=== PATIENT | female | born 1980 | race African-American/Black ===

== ENCOUNTER 2019-10-30 07:12 | Emergency (ER) | payer SELFPAY ==
[2019-10-30 09:12] LABS: HEMATOCRIT 36.8 % (36.0-47.0); HEMOGLOBIN 11.9 g/dL (12.0-15.5); MEAN CORPUSCULAR HEMOGLOBIN 25.7 pg (27.0-33.4); MEAN CORPUSCULAR HGB CONC 32.4 g/dL (32.0-36.0); MEAN CORPUSCULAR VOLUME 79 fl (80-97); PLATELET COUNT 251 10^3/uL (150-450); RED BLOOD COUNT 4.64 10^6/uL (3.72-5.28); RED CELL DISTRIBUTION WIDTH 15.9 % (11.5-14.0); WHITE BLOOD COUNT 8.9 10^3/uL (4.0-10.5)
[2019-10-30 09:32] LABS: ALBUMIN 3.7 g/dL (3.5-5.0); ALKALINE PHOSPHATASE 55 U/L (38-126); ANION GAP 7 (5-19); ASPARTATE AMINO TRANSFERASE 21 U/L (14-36); BILIRUBIN,DIRECT 0.1 mg/dL (0.0-0.4); BILIRUBIN,TOTAL 0.3 mg/dL (0.2-1.3); BLOOD UREA NITROGEN 13 mg/dL (7-20); CALCIUM 8.9 mg/dL (8.4-10.2); CARBON DIOXIDE 27 mmol/L (22-30); CHLORIDE 102 mmol/L (98-107); GLUCOSE 89 mg/dL (75-110); POTASSIUM 4.5 mmol/L (3.6-5.0)
[2019-10-30 09:39] LABS: APPEARANCE,URINE SLIGHTLY-CLOUDY; BILIRUBIN,URINE NEGATIVE (NEGATIVE); COLOR,URINE YELLOW; GLUCOSE, URINE NEGATIVE (NEGATIVE); KETONES,URINE NEGATIVE (NEGATIVE); LEUKOCYTE ESTERASE,URINE NEGATIVE (NEGATIVE); NITRITE,URINE NEGATIVE (NEGATIVE); PROTEIN,URINE NEGATIVE (NEGATIVE); URINE SPECIFIC GRAVITY 1.013; UROBILINOGEN,URINE NEGATIVE mg/dL (<2.0)
[2019-10-30 09:50] LABS: ABSOLUTE LYMPHOCYTES# (MANUAL) 2.5 10^3/uL (0.5-4.7); ABSOLUTE MONOCYTES # (MANUAL) 0.3 10^3/uL (0.1-1.4); BASOPHILS % (MANUAL) 0 % (0-2); EOSINOPHILS % (MANUAL) 3 % (0-6); LYMPHOCYTES % (MANUAL) 25 % (13-45); MONOCYTES % (MANUAL) 3 % (3-13); SEGMENTED NEUTROPHILS % (MAN) 66 % (42-78); TOTAL CELLS COUNTED 100
[2019-10-30 09:52] LABS: ANISOCYTOSIS 1+; HYPOCHROMASIA SLIGHT
[2019-10-30 09:53] LABS: PLATELET COMMENT ADEQUATE
--- NOTE | 2019-10-30 11:06 | RADIOLOGY REPORT (SQ) ---
EXAM DESCRIPTION: ACUTE ABDOMEN SERIES COMPLETED DATE/TIME: 10/30/2019 10:57 am REASON FOR STUDY: Lower abdominal pain COMPARISON: None. NUMBER OF VIEWS: Three views. TECHNIQUE: Frontal chest, supine abdomen and upright/decubitus abdomen radiographic images acquired. LIMITATIONS: None. FINDINGS: CHEST: Lungs clear of infiltrates. FREE AIR: None. No abnormal gas collections. BOWEL GAS PATTERN: Nonobstructive pattern. No dilated loops or air fluid levels. CALCIFICATIONS: No suspicious calcifications. HARDWARE: None in the abdomen. SOFT TISSUES: No gross mass or suggestion of organomegaly. BONES: No acute fracture. No worrisome bone lesions. OTHER: No other significant finding. IMPRESSION: NO RADIOGRAPHIC EVIDENCE FOR ACUTE ABDOMINAL DISEASE. TECHNICAL DOCUMENTATION: JOB ID: [id number] [employer]- All Rights Reserved Reading location - IP/workstation name: [email or web address]
[2019-10-30 12:03] VITALS: BP 139/79
[2019-10-30 12:39] LABS: CHLAM PCR NOT DETECTED (NOT DETECT)
--- NOTE | 2019-11-02 08:25 | ER Document Report ---
Entered by TAMIKO RIVERO SCRIBE 10/30/19 0838 Acting as scribe for:BRENDA JIMÉNEZ MD ED General - General Chief Complaint: Abdominal Pain Stated Complaint: ABDOMINAL PAIN Time Seen by Provider: 10/30/19 08:31 Primary Care Provider: DAVID PRIETO FNP-C [Primary Care Provider] - Follow up as needed Mode of Arrival: Ambulatory Information source: Patient Notes: This 39 year old female presents to the ED today with complaints of lower a bdominal pain with associated nausea, burning with urination, and lower back pain for the past x1 week. Patient describes the pain as being constant since onset, but has gradually gotten more severe as the week progressed. She has been drinking cranberry juice thinking it was a urinary tract infection. Patient reports that her last menstrual period was x1.5 weeks ago, normal, and on time. Patient states that her last bowel movement was normal yesterday. Patient denies fevers, vomiting, diarrhea, history of frequent urinary tract infections or vaginal discharge. TRAVEL OUTSIDE OF THE [place] IN LAST 30 DAYS: No - Related Data Allergies/Adverse Reactions: No Known Allergies Allergy (Verified 06/07/15 07:26) Past Medical History - General Information source: Patient - Social History Smoking Status: Never Smoker Cigarette use (# per day): No Chew tobacco use (# tins/day): No Frequency of alcohol use: 1-2 wine nightly Drug Abuse: None Family History: DM, Malignancy Patient has suicidal ideation: No Patient has homicidal ideation: No Pulmonary Medical History: Reports: Hx Asthma Past Surgical History: Reports: Hx Tubal Ligation - Immunizations Immunizations up to date: Yes Hx Diphtheria, Pertussis, Tetanus Vaccination: Yes Review of Systems - Review of Systems Constitutional: See HPI. denies: Fever EENT: No symptoms reported Cardiovascular: No symptoms reported Respiratory: No symptoms reported Gastrointestinal: See HPI, Abdominal pain, Nausea, Last bowel movement - normal, x1 day ago. denies: Diarrhea, Vomiting Genitourinary: See HPI, Dysuria Female Genitourinary: Last menstrual period - x1.5 week ago, normal, and on time Musculoskeletal: See HPI, Back pain Skin: No symptoms reported Hematologic/Lymphatic: No symptoms reported Neurological/Psychological: No symptoms reported -: Yes All other systems reviewed and negative Physical Exam - Vital signs Vitals: BP 139/97 H 06/07/15 08:46 Interpretation: Normal - General General appearance: Alert In distress: None - HEENT Head: Normocephalic, Atraumatic Eyes: Normal Pupils: PERRL - Respiratory Respiratory status: No respiratory distress Chest status: Nontender Breath sounds: Normal Chest palpation: Normal - Cardiovascular Rhythm: Regular Heart sounds: Normal auscultation Murmur: No - Abdominal Inspection: Obese Distension: No distension Bowel sounds: Normal - active bowel sounds Tenderness: Nontender - abdomen soft; palpation of the entire lower abdomen causes a mild diffuse pressure sensation per patient. No: Guarding Organomegaly: No organomegaly - Back Back: Normal, Tender - Lumbar-sacral back muscles are little tender - Extremities General upper extremity: Normal inspection General lower extremity: Normal inspection - Neurological Neuro grossly intact: Yes - Psychological Associated symptoms: Normal affect, Normal mood - Skin Skin Temperature: Warm Skin Moisture: Dry Skin Color: Normal Course - Re-evaluation Re-evalutation: 10/30/19 11:48 Patient CBC, Chem-12, and urinalysis are all completely normal. Acute abdominal series was done and it is unremarkable. I am unable to explain the burning she feels when she urinates along with the constant lower pelvic discomfort and the low back pain with completely normal urine. She wonders if it might be her bacterial vaginosis, however explained her that that will not cause pain in the pelvis or in the low back, and that her urine despite having 16 epithelial cells had a single WBC and no bacteria. We d iscussed managing her symptoms with Tylenol and ibuprofen, plenty of fluids, and following up with [facility] Saturday if her symptoms persist. - Vital Signs Vital signs: Temp Pulse Resp BP Pulse Ox 98.5 F 87 18 139/97 H 99 10/30/19 07:31 10/30/19 07:17 10/30/19 07:31 10/30/19 07:31 10/30/19 07:31 - Laboratory Result Diagrams: 10/30/19 09:02 10/30/19 09:02 Laboratory results interpreted by me: 10/30/19 10/30/19 09:02 09:02 Hgb 11.9 L MCV 79 L MCH 25.7 L RDW 15.9 H Sodium 135.8 L - Diagnostic Test Radiology reviewed: Image reviewed, Reports reviewed - Acute abdominal series is unremarkable Discharge - Discharge Clinical Impression: Pelvic pain, Dysuria Low back pain Qualifiers: Chronicity: acute Back pain laterality: unspecified Sciatica presence: without sciatica Qualified Code(s): M54.5 - Low back pain Disposition: HOME, SELF-CARE Additional Instructions: Pelvic Pain There are many causes of pain in the pelvic area. The cause could be the tubes, ovaries, uterus, intestines, appendix, pelvic muscles and connective tissue, or the urinary tract. The cause of your pelvic pain is not clear. However, it seems safe to treat you outside the hospital. If the pain sounds like a temporary problem, we sometimes wait to see if it goes away. Other patients may need additional tests, such as pelvic ultrasound or cultures. Conditions may change. Call us or come back for reexamination if any problems occur, such as: (1) Pain that becomes more severe, steady, or becomes concentrated in one specific area. Also, pain that is more severe with movement or coughing. (2) Vomiting that persists or becomes more frequent. (3) Blood in the vomitus, urine, or bowel movements. Blood in the stool may have a tarry or black appearance. (4) Shaking chills or fever greater than 100 degrees. (5) The abdomen becomes more distended or swollen. (6) Bowel movements cease. (7) Heavy vaginal bleeding. Take Tylenol and ibuprofen for pelvic and low back discomfort as needed. Drink plenty of fluids. Follow-up with [facility] Saturday for recheck if your symptoms persist. RETURN TO THE EMERGENCY ROOM IF ANY NEW OR WORSENING SYMPTOMS. Referrals: DAVID PRIETO FNP-C [Primary Care Provider] - Follow up as needed [facility] [Provider Group] - Follow up as needed Scribe Attestation: 10/30/19 10:50 I personally performed the services described in the documentation, reviewed and edited the documentation which was dictated to the scribe in my presence, and it accurately records my words and actions. I personally performed the services described in the documentation, reviewed and edited the documentation which was dictated to the scribe in my presence, and it accurately records my words and actions.
== END 2019-10-30 12:02 | disposition home or self-care (01) ==
LOC: ER 07:12
DX: R10.2 Pelvic and perineal pain (principal); R10.30 Lower abdominal pain, unspecified; R30.0 Dysuria; M54.5 Low back pain; E66.9 Obesity, unspecified
CPT/HCPCS: 36415; 74022; 80053; 81001; 81025; 83690; 85025; 87491; 87591; 99284

== ENCOUNTER 2020-03-29 12:41 | Emergency (ER) | payer SELFPAY ==
[2020-03-29] MEDS ORDERED: IBUPROFEN 800 MG TABLET PO ONE (12:51)
--- NOTE | 2020-03-29 12:56 | ER Document Report ---
HPI - HPI Time Seen by Provider: 03/29/20 12:45 Pain Level: 5 Notes: 39-year-old female presents to the emergency room for complaints of bilateral knee pain for over 1 year. Denies any trauma, falling, previous injury to the knee. Has not followed up with her primary care provider for this issue because she moved from [place] over a year ago. Has not tried any Tylenol or ibuprofen. 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 Denies fevers, chills, chest pain,palpitations, shortness of breath, dyspnea, nausea, vomiting, diarrhea, abdominal pain, hematuria,blurred vision, double vision, loss of vision, speech changes, LH, dizziness, syncope, headaches, wheezing, ST, URI, neck pain, weakness, bowel or bladder dysfunction, saddle anesthesia, numbness or tingling in bilateral upper or lower extremities equally, muscle paralysis, weakness in bilateral upper or lower extremities equally or rash. REVIEW OF SYSTEMS:reviewed vital signs by RN CONSTITUTIONAL : Denies fever, chills, or sweats. Denies recent illness. EENT: Denies eye, ear, throat, or mouth pain or symptoms. Denies nasal or sinus congestion or discharge. Denies throat, tongue, or mouth swelling or difficulty swallowing. CARDIOVASCULAR: Denies chest pain. Denies palpitations or racing or irregular heart beat. Denies ankle edema. RESPIRATORY: Denies cough, cold, or chest congestion. Denies shortness of breath, difficulty breathing, or wheezing. GASTROINTESTINAL: Denies abdominal pain or distention. Denies nausea, vomiting, or diarrhea. Denies blood in vomitus, stools, or per rectum. Denies black, tarry stools. Denies constipation. GENITOURINARY: Denies difficulty urinating, painful urination, burning, frequency, blood in urine, or discharge. FEMALE GENITOURINARY: Denies vaginal bleeding, heavy or abnormal periods, irregular periods. Denies vaginal discharge or odor. MUSCULOSKELETAL: reports bilateral knee pain. Denies back or neck pain or stiffness. Denies joint pain or swelling besides knee. SKIN: Denies rash, lesions or sores. HEMATOLOGIC : Denies easy bruising or bleeding. LYMPHATIC: Denies swollen, enlarged glands. NEUROLOGICAL: Denies confusion or altered mental status. Denies passing out or loss of consciousness. Denies dizziness or lightheadedness. Denies headache. Denies weakness or paralysis or loss of use of either side. Denies problems with gait or speech. Denies sensory loss, numbness, or tingling. Denies seizures. PSYCHIATRIC: Denies anxiety or stress. Denies depression, suicidal ideation, or homicidal ideation. ALL OTHER SYSTEMS REVIEWED AND NEGATIVE. PHYSICAL EXAMINATION: GENERAL: Well-appearing, morbidly obese and in no acute distress. HEAD: Atraumatic, normocephalic. EYES: Pupils equal round and reactive to light, extraocular movements intact, conjunctiva are normal. ENT: Nares patent, oropharynx clear without exudates. Moist mucous membranes. NECK: Normal range of motion, supple without lymphadenopathy LUNGS: Breath sounds clear to auscultation bilaterally and equal. No wheezes rales or rhonchi. HEART: Regular rate and rhythm without murmurs ABDOMEN: Soft, nontender, nondistended abdomen. No guarding, no rebound. No masses appreciated. Female : deferred Musculoskeletal: Normal range of motion, no pitting or edema. No cyanosis. left and right nee pain with palpation to lateral aspect of knee with noted swelling. negative braxton's sign. anterior and posterior drawer test negative. noted pain with inversion and eversion bilaterally. Dtr + 2 in BLE. Full motor and sensory function to BLE equally. No open wounds. No induration or drainage. Strength 5 out of 5 bilaterally equally. Ankle examination normal. Squeeze test negative. Hip examination normal. Pulses + 2 bilaterally and equally.negative squeeze bilaterally and equally. NEUROLOGICAL: Cranial nerves grossly intact. Normal speech, normal gait. Normal sensory, motor exams PSYCH: Normal mood, normal affect. SKIN: Warm, Dry, normal turgor, no rashes or lesions noted. Dictation was performed using [employer] voice recognition software - REPRODUCTIVE Reproductive: DENIES: : Past Medical History - Social History Smoking Status: Unknown if Ever Smoked Family History: DM, Malignancy Patient has homicidal ideation: No Pulmonary Medical History: Reports: Hx Asthma, Hx Bronchitis Past Surgical History: Reports: Hx Oral Surgery, Hx Tubal Ligation - Immunizations Immunizations up to date: Yes Hx Diphtheria, Pertussis, Tetanus Vaccination: Yes Vertical Provider Document - INFECTION CONTROL TRAVEL OUTSIDE OF THE [place] IN LAST 30 DAYS: No Course - Re-evaluation Re-evalutation: 03/29/20 13:09 Afebrile vital stable no distress. Nurses notes reviewed. Bilateral knee x- rays negative for acute fracture dislocation, does show osteoarthritis. Discussed with patient that she needs to follow-up with her primary care provider, commit to stretching, also commit to weight reduction as well as taking anti-inflammatories and following up with an electronic commerce specialist. Discussed that she likely will have to follow-up with physical therapy which she needs a referral from her PCP. After performing a Medical Screening Examination, I estimate there is LOW risk for OPEN FRACTURE, COMPARTMENT SYNDROME, DEEP VENOUS THROMBOSIS, ACUTE TENDON RUPTURE, or NEUROVASCULAR INJURY thus I consider the discharge disposition reasonable. I have reevaluated this patient multiple times and no significant life threatening changes are noted. The patient and I have discussed the diagnosis and risks, and we agree with discharging home to closely follow-up with their primary doctor or the referral orthopedist with the understanding that symptoms and presentations can change. We also discussed returning to the Emergency Department immediately if new or worsening symptoms occur. We have discussed the symptoms which are most concerning (e.g., changing or worsening pain, numbness, weakness) that necessitate immediate return - Vital Signs Vital signs: Temp Pulse Resp BP Pulse Ox 97.7 F 03/29/20 12:44 Discharge - Discharge Clinical Impression: Bilateral knee pain Condition: Stable Disposition: HOME, SELF-CARE Instructions: Knee Exercise Program ([facility]), Sprained Knee ([facility]) Additional Instructions: Your x-rays today were negative. Advised to start knee exercises, apply heat 20 minutes on 20 minutes off several times a day. Follow-up with electronic commerce specialist as needed. Follow-up with your primary care provider within the next 24 to 48 hours Return immediately for any new or worsening symptoms. Follow up with primary care provider, call tomorrow to make followup appointment. Prescriptions: Meloxicam [Mobic] 7.5 mg PO DAILY #7 tablet Referrals: DAVID PRIETO FNP-C [Primary Care Provider] - Follow up in 3-5 days SHERICE CEBALLOS MD [ACTIVE STAFF] - Follow up as needed
--- NOTE | 2020-03-29 13:38 | RADIOLOGY REPORT (SQ) ---
EXAM DESCRIPTION: KNEE BILATERAL 1-2 VIEWS IMAGES COMPLETED DATE/TIME: 03/29/2020 1:19 pm REASON FOR STUDY: bilateral knee pain COMPARISON: None. NUMBER OF VIEWS: Four views. TECHNIQUE: AP and lateral radiographs of the knees were obtained. LIMITATIONS: None. FINDINGS: MINERALIZATION: Normal. BONES: No fracture or dislocation. JOINT: Moderate bilateral tricompartmental osteoarthrosis. There is no chondrocalcinosis or joint ef fusion. OTHER: The quadriceps and patellar tendon silhouettes are intact. IMPRESSION: Moderate bilateral tricompartmental osteoarthrosis. There is no acute osseous abnormali ty of the knees. TECHNICAL DOCUMENTATION: JOB ID: [id number] 2010 [employer]- All Rights Reserved Reading location - IP/workstation name: [email or web address]
[2020-03-29 14:49] VITALS: BP 130/78
== END 2020-03-29 14:50 | disposition home or self-care (01) ==
LOC: ER 12:41
DX: M25.562 Pain in left knee (principal); M25.561 Pain in right knee
CPT/HCPCS: 99283

== ENCOUNTER 2020-05-20 20:09 | Emergency (ER) | payer SELFPAY ==
--- NOTE | 2020-05-20 21:30 | ER Document Report ---
ED Medical Screen (RME) - General Chief Complaint: Chest Pain > 30 Stated Complaint: NECK PAIN, LEFT ARM PAIN, LEFT FLANK PAIN, BACK PA Time Seen by Provider: 05/20/20 21:22 Primary Care Provider: DAVID PRIETO FNP-C [Primary Care Provider] - Follow up as needed Notes: Patient is a 39-year-old female who presents the emergency department with a chief complaint of an "uneasy feeling" in her chest. Patient states that she feels like she has "bubbles" in the left side of her chest. She also states that she has some pain radiating down her left arm. Exam: S1, S2 Exam: S1, S2. I have greeted and performed a rapid initial assessment of this patient. A comprehensive ED assessment and evaluation of the patient, analysis of test results and completion of medical decision making process will be conducted by a n additional ED providers. TRAVEL OUTSIDE OF THE [place] IN LAST 30 DAYS: No - Related Data Allergies/Adverse Reactions: No Known Allergies Allergy (Verified 06/07/15 07:26) Past Medical History Pulmonary Medical History: Reports: Hx Asthma, Hx Bronchitis Past Surgical History: Reports: Hx Oral Surgery, Hx Tubal Ligation - Immunizations Immunizations up to date: Yes Hx Diphtheria, Pertussis, Tetanus Vaccination: Yes Physical Exam - Vital signs Vitals: Temp Pulse Resp BP Pulse Ox 100.0 F 81 20 148/96 H 100 05/20/20 20:39 05/20/20 20:39 05/20/20 20:39 05/20/20 20:39 05/20/20 20:39 Course - Vital Signs Vital signs: Temp Pulse Resp BP Pulse Ox 100 F 81 20 148/96 H 100 05/20/20 21:17 05/20/20 20:39 05/20/20 20:39 05/20/20 20:39 05/20/20 20:39 Doctor's Discharge - Discharge Referrals: DAVID PRIETO FNP-C [Primary Care Provider] - Follow up as needed
--- NOTE | 2020-05-20 22:07 | RADIOLOGY REPORT (SQ) ---
EXAM DESCRIPTION: XR CHEST 2 VIEWS COMPLETED DATE/TME: 05/20/2020 21:26 CLINICAL HISTORY: 39 years, Female, chest pain COMPARISON: X-ray chest 06/07/2015 NUMBER OF VIEWS: TECHNIQUE: LIMITATIONS: None. FINDINGS: No evidence of pulmonary infiltrate or pleural effusion. The heart and mediastinum are unremarkable. Pulmonary vascularity appears normal. There is no significant change, as compared with the prior x-ray(s). IMPRESSION: No acute finding. copyright 2010 [employer]- All Rights Reserved
[2020-05-20 22:39] LABS: ABSOLUTE BASOPHILS # (AUTO) 0.1 10^3/uL (0.0-0.2); ABSOLUTE EOSINOPHILS # (AUTO) 0.1 10^3/uL (0.0-0.6); ABSOLUTE LYMPHOCYTES (AUTO) 2.3 10^3/uL (0.5-4.7); ABSOLUTE MONOCYTES (AUTO) 0.6 10^3/uL (0.1-1.4); ABSOLUTE NEUT (AUTO) 6.5 10^3/uL (1.7-8.2); BASOPHILS % (AUTO) 0.7 % (0-2); EOSINOPHILS % (AUTO) 1.1 % (0-6); HEMATOCRIT 35.9 % (36.0-47.0); HEMOGLOBIN 11.6 g/dL (12.0-15.5); LYMPHOCYTES % (AUTO) 24.1 % (13-45); MEAN CORPUSCULAR HEMOGLOBIN 25.6 pg (27.0-33.4); MEAN CORPUSCULAR HGB CONC 32.4 g/dL (32.0-36.0); MEAN CORPUSCULAR VOLUME 79 fl (80-97); MONOCYTES % (AUTO) 6.7 % (3-13); PLATELET COUNT 274 10^3/uL (150-450); RED BLOOD COUNT 4.54 10^6/uL (3.72-5.28); RED CELL DISTRIBUTION WIDTH 16.1 % (11.5-14.0); SEGMENTED NEUTROPHILS % (AUTO) 67.4 % (42-78); TOTAL CELLS COUNTED % (AUTO) 100 %; WHITE BLOOD COUNT 9.7 10^3/uL (4.0-10.5)
[2020-05-20 22:53] LABS: ALKALINE PHOSPHATASE 74 U/L (38-126); ANION GAP 6 (5-19); ASPARTATE AMINO TRANSFERASE 22 U/L (14-36); BILIRUBIN,TOTAL 0.3 mg/dL (0.2-1.3); BLOOD UREA NITROGEN 9 mg/dL (7-20); CARBON DIOXIDE 28 mmol/L (22-30); CHLORIDE 101 mmol/L (98-107); CREATINE KINASE 158 U/L (30-135); GLUCOSE 92 mg/dL (75-110); POTASSIUM 4.5 mmol/L (3.6-5.0); TOTAL PROTEIN 7.4 g/dL (6.3-8.2)
[2020-05-20 23:04] LABS: CREATINE KINASE MB 1.12 ng/mL (<4.55)
[2020-05-20 23:06] LABS: TROPONIN I < 0.012 ng/mL
--- NOTE | 2020-05-21 08:29 | ER Document Report ---
ED General - General Chief Complaint: Chest Pain > 30 Stated Complaint: NECK PAIN, LEFT ARM PAIN, LEFT FLANK PAIN, BACK PA Time Seen by Provider: 05/20/20 21:22 Primary Care Provider: DAVID PRIETO FNP-C [Primary Care Provider] - Follow up as needed TRAVEL OUTSIDE OF THE [place] IN LAST 30 DAYS: No - HPI Notes: Chief complaint: Left shoulder pain History of present illness: 39-year-old female with no known history of cardiac disease developed sharp discomfort in her left shoulder yesterday while engaged in light activity and initially took some ibuprofen for this and went to sleep. When she awakened she had continued discomfort and indicates that it was intermittently "shooting" into her jaw, her back and her left flank area. No associated nausea, vomiting, diaphoresis or dyspnea. Pain was persistent when she came to the hospital overnight. She subsequently went back to sleep here and reports complete resolution of her discomfort. Patient is a former smoker. She is not diabetic and has no history of hyperlipidemia or hypertension. Family history is negative for cardiac disease. Patient is obese. She denies any personal history or family history of thromboembolic disease. No recent trauma. 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 HEART Score: HISTORY 1 ECG 0 AGE 1 RISK FACTORS 1 TROPONIN 0 TOTAL: 2 If HEART score is <3 AND both tronponin measurments are normal, the 30 day risk of a major adverse cardiac event (all-cause mortality, myocardia infarction or need for coronary revscularization) is < 1% (Sensitivity 100%, NPV 100%). PERC SCORE (HADCLOTS) H Hormone administration A <50 D No DVT/PE previously C no hemoptysis L no leg swelling unilaterally O O2 sat. Greater than 3579 95% T. No no tachycardia S no surgery/Trauma recently - Related Data Allergies/Adverse Reactions: No Known Allergies Allergy (Verified 06/07/15 07:26) Past Medical History - General Information source: Patient, [facility] Records - Social History Smoking Status: Current Some Day Smoker Frequency of alcohol use: Rare Drug Abuse: None Lives with: Family Family History: DM, Malignancy. denies: CAD - Past Medical History Cardiac Medical History: Denies: Hx Coronary Artery Disease, Hx DVT, Hx Hypercholesterolemia, Hx Hypertension, Hx Pulmonary Embolism Pulmonary Medical History: Reports: Hx Asthma, Hx Bronchitis Endocrine Medical History: Denies: Hx Diabetes Mellitus Type 1, Hx Diabetes Mellitus Type 2 Past Surgical History: Reports: Hx Oral Surgery, Hx Tubal Ligation - Immunizations Immunizations up to date: Yes Hx Diphtheria, Pertussis, Tetanus Vaccination: Yes Review of Systems - Review of Systems Notes: Constitutional: Negative for fever. HENT: Negative for sore throat. Eyes: Negative for visual changes. Cardiovascular: As per HPI. Respiratory: Negative for shortness of breath. Gastrointestinal: Negative for abdominal pain, vomiting or diarrhea. Genitourinary: Negative for dysuria. Musculoskeletal: As per HPI. Skin: Negative for rash. Neurological: Negative for headaches, weakness or numbness. 10 point ROS negative except as marked above and in HPI. Physical Exam - Vital signs Vitals: Temp Pulse Resp BP Pulse Ox 100.0 F 81 20 148/96 H 100 05/20/20 20:39 05/20/20 20:39 05/20/20 20:39 05/20/20 20:39 05/20/20 20:39 - Notes Notes: GENERAL: Obese female of approximately stated age appearing in no acute distress. SKIN: Good turgor no rashes. HEAD: Normocephalic atraumatic. EYES: PERRLA. EOMI. Conjunctivae and sclerae clear. EARS: CANALS AND TMS CLEAR. NOSE: CLEAR. MOUTH: Moist mucosa. Good dentition. No stridor or edema. No drooling. NECK: Supple. No masses or thyromegaly. No adenopathy. Carotids 2+ without bruits. No JVD. BACK: Symmetrical without tenderness. CHEST: Mild tenderness of left anterior chest wall which appears to reproduce discomfort. Respirations unlabored. Breath sounds clear and symmetrical. HEART: Regular rhythm. No murmur gallop or rub. ABDOMEN: Soft nontender without masses, organomegaly or rebound. Bowel sounds normally active. No bruits. GENITALIA: Deferred. EXTREMITIES: No edema. No calf tenderness. Cap refill less than 1.5 seconds. Dorsalis pedis and posterior tibial pulses 3+ and symmetrical. NEUROLOGICAL: GCS 15. Alert and oriented x3. Normal gait. Fluent speech. Cranial nerves II through XII intact. Sensorimotor and cerebellar normal. Normal tone. PSYCHIATRIC: Appropriate affect. Course - Re-evaluation Re-evalutation: 05/21/20 08:37 Patient is currently pain-free and has a heart score less than 3. 2 normal trop onins. Normal EKG. PERC screen is negative. Pain appears likely to be of musculoskeletal origin although patient does have some risks including intermittent smoking and obesity. She appears stable for outpatient follow-up with PMD. I will provide her a work note and will put her on some oral na proxen. She is advised she should see her primary care doctor this week and should have a treadmill test as an outpatient. Findings, clinical impression and plan of treatment have been discussed with patient/family. Understanding of current findings and recommendations has been acknowledged by them and there is agreement regarding disposition and follow-up. 05/21/20 08:38 - Vital Signs Vital signs: Temp Pulse Resp BP Pulse Ox 99.0 F 80 16 119/78 99 05/21/20 01:28 05/21/20 01:28 05/21/20 06:01 05/21/20 06:01 05/21/20 06:01 - Laboratory Result Diagrams: 05/20/20 22:02 05/20/20 22:02 Laboratory results interpreted by me: 05/20/20 05/20/20 22:02 22:02 Hgb 11.6 L Hct 35.9 L MCV 79 L MCH 25.6 L RDW 16.1 H Sodium 134.8 L Creatine Kinase 158 H - EKG Interpretation by Me Additional EKG results interpreted by me: 05/21/20 08:36 Twelve-lead EKG from 2209 hrs. on 05/20/2020 reviewed by me demonstrating normal sinus rhythm with a rate of 70 and a normal axis of +19 degrees with normal intervals. She has no acute ST/T wave changes. Indication for current study: Chest pain. Discharge - Discharge Clinical Impression: Chest pain Qualifiers: Chest pain type: unspecified Qualified Code(s): R07.9 - Chest pain, unspecified Condition: Stable Disposition: HOME, SELF-CARE Additional Instructions: Chest Pain of Unclear Cause The exact cause of your chest pain isn't clear. Fortunately, there is no evidence of a dangerous medical condition. Further testing may be required to find the source of the pain. Most often, we find that this pain is coming from the chest wall -- the musc les or rib joints in the chest. But chest pain can come from the lung and lung lining, the esophagus, the heart valves or heart lining, and even the stomach or gallbladder. Rest. Eat lightly until the pain is gone. We may prescribe medicine for pain and inflammation. You should call the physician immediately if the pain radiates to the shoulder, jaw or arms; if you start to run a fever or develop a cough; or if you develop shortness of breath, or other new or alarming symptoms. Stop smoking. Follow-up with your primary care provider within the next 3 days and discuss further evaluation with a treadmill test. Return here as needed for new or worsening symptoms: Pain that is worsening or unimproved Uncontrolled vomiting High fever or shaking chills Overall worsening Prescriptions: Naproxen 500 mg PO BID PRN #14 tablet PRN Reason: Forms: Smoking Cessation Education, Return to Work Referrals: DAVID PRIETO FNP-C [Primary Care Provider] - Follow up as needed
[2020-05-21 09:07] VITALS: BP 128/93
--- NOTE | 2020-05-21 22:14 | EKG REPORT ---
SEVERITY:- NORMAL ECG - SINUS RHYTHM : Confirmed by: Gera Mcpherson 21-May-2020 22:13:33
== END 2020-05-21 09:07 | disposition home or self-care (01) ==
LOC: ER 20:09
DX: R07.9 Chest pain, unspecified (principal); M54.2 Cervicalgia; M79.602 Pain in left arm; R10.9 Unspecified abdominal pain; M54.9 Dorsalgia, unspecified; F17.200 Nicotine dependence, unspecified, uncomplicated; I25.10 Atherosclerotic heart disease of native coronary artery without angina pectoris; E66.9 Obesity, unspecified; J45.909 Unspecified asthma, uncomplicated
CPT/HCPCS: 36415; 71046; 80053; 82550; 82553; 84484; 85025; 93005; 93010; 99284